=== PATIENT | female | born 1940 | race Caucasian/White ===

== ENCOUNTER 2018-09-06 15:24 | Emergency (ER) | payer MEDICARE, OTHER ==
[~2018-09-06] VITALS: Ht 152.4 cm; Wt 78.9 kg
[2018-09-06 15:30] VITALS: BP 173/56
--- NOTE | 2018-09-06 15:30 | NUR ---
ED Nurse Note: pt arrives from [facility] with c/o a few days of a painful cough. pt is vietnamese speaking, complaining of 2/10 pain on the chest. pt not in acute distress. 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 seen by theresa. pt able to give urine and sent to lab.
--- NOTE | 2018-09-06 15:32 | Emergency Room Report ---
History of Present Illness General Chief Complaint: Upper Respiratory Illness Source: Patient, EMS Present Illness HPI The patient is brought by EMS. They were called to a clinic where the patient was experiencing chest pain. They claim that she's had a productive cough. Seems more pleuritic according to their assessment. An EKG was done in the field which revealed normal sinus rhythm with no injury. The clinic gave her aspirin. The patient's been having exertional dyspnea and weakness has progressing over the last few months. She also complains about chest pressure during those times. The patient reports having catheterization and stenting 13 or 14 years ago. She was last evaluated by a commercial loan specialist and 11 and 5 months ago but had no studies done at that time. 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 Past Medical History: see triage record Social History: Denies: smoking, alcohol use, drug use Social History Narrative from [place] Last Menstrual Period: na Reviewed Nursing Documentation: PMH: Agreed; PSxH: Agreed Nursing Documentation-PMH Past Medical History: No History, Except For Hx Cardiac Problems: Yes - stent 2001, high cholesterol, chf Hx Hypertension: Yes Hx Diabetes: Yes Review of Systems All Other Systems: negative except mentioned in HPI Physical Exam Vital Signs Date Time Temp Pulse Resp B/P (MAP) Pulse Ox O2 Delivery O2 Flow Rate FiO2 09/06/18 15:18 97.5 71 20 99 Room Air Sp02 EP Interpretation: reviewed, normal General Appearance: well appearing, no apparent distress, GCS 15 Head: normocephalic Eyes: bilateral eye normal inspection, bilateral eye PERRL, bilateral eye EOMI ENT: moist mucus membranes Neck: supple Respiratory: lungs clear, normal breath sounds Cardiovascular #1: regular rate, rhythm Cardiovascular #2: 2+ radial (R) Gastrointestinal: normal inspection, normal bowel sounds, non tender, no mass, non-distended, overweight Musculoskeletal: back normal, gait/station normal, normal range of motion, no calf tenderness Neurologic: alert, oriented x3, grossly normal Psychiatric: anxious Skin: normal inspection, warm/dry Medical Decision Making Diagnostic Impression: Primary Impression: ACS (acute coronary syndrome) Additional Impression: Upper respiratory infection Qualified Codes: J06.9 - Acute upper respiratory infection, unspecified ER Course Patient presents with chest pain. Differential includes acute myocardial infarction cardial infarction, acute coronary syndrome, pneumonia, chest wall strain, costochondritis, pleurisy, pulmonary embolus amongst others. Based on vital signs pulmonary embolus is less likely. The patient will be evaluated with EKG, chest x-ray and labs. History of increasing dyspnea and weakness with exertion over the past 2 months is disconcerting. She has several risk factors for cardiac cause of chest pain. EKG without injury. Chest x-ray without infiltrate slight cardiomegaly. Labs with negative troponin. Patient is pain free after nitroglycerin paste. Due to high risk factors and symptoms of possibly stable angina, observation is indicated. Patient was discussed with Dr. Granger who accepts the patient for observation at [facility] [place]. Multiple discussions with patient regarding the need to be transferred. She refused to sign transfer papers until daughter was contacted and supported her further evaluation. Laboratory Tests Test 09/06/18 15:45 09/06/18 16:30 Urine Color Pale yellow Urine Appearance Clear Urine pH 5 (4.5-8.0) Urine Specific [place] 1.010 (1.005-1.035) Urine Protein Negative (NEGATIVE) Urine Glucose (UA) Negative (NEGATIVE) Urine Ketones Negative (NEGATIVE) Urine Blood 1+ (NEGATIVE) H Urine Nitrite Negative (NEGATIVE) Urine Bilirubin Negative (NEGATIVE) Urine Urobilinogen Normal MG/DL (0.0-1.0) Urine Leukocyte Esterase Negative (NEGATIVE) Urine RBC 0-2 /HPF (0 - 2) Urine WBC 0 /HPF (0 - 2) Urine Squamous Epithelial Cells Occasional /LPF Urine Bacteria Occasional /HPF (NONE) White Blood Count 6.5 K/UL (4.8-10.8) Red Blood Count 3.95 M/UL (4.20-5.40) L Hemoglobin 12.5 G/DL (12.0-16.0) Hematocrit 36.8 % (37.0-47.0) L Mean Corpuscular Volume 93 FL (80-99) Mean Corpuscular Hemoglobin 31.6 PG (27.0-31.0) H Mean Corpuscular Hemoglobin Concent 33.9 G/DL (32.0-36.0) Red Cell Distribution Width 12.7 % (11.6-14.8) Platelet Count 220 K/UL (150-450) Mean Platelet Volume 8.0 FL (6.5-10.1) Neutrophils (%) (Auto) 43.4 % (45.0-75.0) L Lymphocytes (%) (Auto) 47.1 % (20.0-45.0) H Monocytes (%) (Auto) 5.8 % (1.0-10.0) Eosinophils (%) (Auto) 2.5 % (0.0-3.0) Basophils (%) (Auto) 1.2 % (0.0-2.0) Prothrombin Time 10.4 SEC (9.30-11.50) Prothrombin Time INR 1.0 (0.9-1.1) PTT 28 SEC (23-33) Sodium Level 140 MMOL/L (136-145) Potassium Level 4.2 MMOL/L (3.5-5.1) Chloride Level 103 MMOL/L (98-107) Carbon Dioxide Level 28 MMOL/L (21-32) Anion Gap 9 mmol/L (5-15) Blood Urea Nitrogen 22 mg/dL (7-18) H Creatinine 0.7 MG/DL (0.55-1.30) Estimate Glomerular Filtration Rate mL/min (>60) Glucose Level 97 MG/DL (74-106) Calcium Level 9.9 MG/DL (8.5-10.1) Total Bilirubin 0.5 MG/DL (0.2-1.0) Aspartate Amino Transferase (AST) 16 U/L (15-37) Alanine Aminotransferase (ALT) 21 U/L (12-78) Alkaline Phosphatase 62 U/L (46-116) Total Creatine Kinase 86 U/L (26-308) Troponin I 0.000 ng/mL (0.000-0.056) Pro-B-Type Natriuretic Peptide 99 pg/mL (0-125) Total Protein 8.3 G/DL (6.4-8.2) H Albumin 4.2 G/DL (3.4-5.0) Globulin 4.1 g/dL Albumin/Globulin Ratio 1.0 (1.0-2.7) EKG Diagnostic Results Rate: normal Rhythm: NSR ST Segments: no acute changes Rhythm Strip Diag. Results EP Interpretation: yes Rhythm: NSR, no PVC's, no ectopy Chest X-Ray Diagnostic Results Chest X-Ray Diagnostic Results : Chest X-Ray Ordered: Yes # of Views/Limited/Complete: 1 View Indication: Chest Pain EP Interpretation: Yes Interpretation: no consolidation, no effusion, no pneumothorax Impression: Other Electronically Signed by: Electronically signed by Leighton Yuan MD Last Vital Signs Date Time Temp Pulse Resp B/P (MAP) Pulse Ox O2 Delivery O2 Flow Rate FiO2 09/06/18 22:35 98.0 63 12 135/49 100 Room Air Status: improved Disposition: XFER [facility] Condition: Serious Leighton Yuan MD September 06, 2018 15:32
--- NOTE | 2018-09-06 16:09 | Diagnostic Imaging Report ---
Indication: Chest pain Technique: XRAY Chest 1v Comparison: None Findings: Heart appears mildly enlarged. Mediastinal contours are sharp. There are atherosclerotic vascular calcifications. There is slight haziness of point vascularity. No definite focal airspace consolidation identified. No pleural effusion. No pneumothorax. No acute osseous normality. Impression: Apparent cardiomegaly with slight haziness of the pulmonary vascularity suggesting mild congestive changes/early interstitial edema. Correlate clinically.
[2018-09-06 16:10] LABS: APPEARANCE,URINE CLEAR; BILIRUBIN, URINE NEGATIVE (NEGATIVE); COLOR,URINE PALE YELLOW; GLUCOSE, URINE (UA) NEGATIVE (NEGATIVE); KETONES,URINE NEGATIVE (NEGATIVE); LEUKOCYTE ESTERASE ,URINE NEGATIVE (NEGATIVE); NITRITE,URINE NEGATIVE (NEGATIVE); PH,URINE 5 (4.5-8.0); PROTEIN,URINE NEGATIVE (NEGATIVE); UROBILINOGEN,URINE NORMAL MG/DL (0.0-1.0)
[2018-09-06] MEDS ORDERED: Nitroglycerin 2% oint pkt TOPIC ONE (16:15)
[2018-09-06 16:57] LABS: BASOPHILS % (AUTO) 1.2 % (0.0-2.0); EOSINOPHILS % (AUTO) 2.5 % (0.0-3.0); HEMATOCRIT 36.8 % (37.0-47.0); HEMOGLOBIN 12.5 G/DL (12.0-16.0); LYMPHOCYTES % (AUTO) 47.1 % (20.0-45.0); MEAN CORPUSCULAR VOLUME 93 FL (80-99); MONOCYTES % (AUTO) 5.8 % (1.0-10.0); NEUTROPHILS % (AUTO) 43.4 % (45.0-75.0); PLATELET COUNT 220 K/UL (150-450); RED BLOOD COUNT 3.95 M/UL (4.20-5.40); RED CELL DISTRIBUTION WIDTH 12.7 % (11.6-14.8); WHITE BLOOD COUNT 6.5 K/UL (4.8-10.8)
[2018-09-06 17:11] LABS: ANION GAP 9 mmol/L (5-15); BLOOD UREA NITROGEN 22 mg/dL (7-18); CALCIUM 9.9 MG/DL (8.5-10.1); CARBON DIOXIDE 28 MMOL/L (21-32); CHLORIDE 103 MMOL/L (98-107); CREATININE 0.7 MG/DL (0.55-1.30); POTASSIUM 4.2 MMOL/L (3.5-5.1); SODIUM 140 MMOL/L (136-145)
[2018-09-06 17:23] LABS: ALANINE AMINOTRANSFERASE 21 U/L (12-78); ALBUMIN 4.2 G/DL (3.4-5.0); ALKALINE PHOSPHATASE 62 U/L (46-116); ASPARTATE AMINO TRANSFERASE 16 U/L (15-37); BILIRUBIN,TOTAL 0.5 MG/DL (0.2-1.0); CREATINE KINASE 86 U/L (26-308)
[2018-09-06 17:44] VITALS: BP 139/61
--- NOTE | 2018-09-06 18:00 | NUR ---
ED Nurse Note: pt asked for something to eat, sandwich provided and pt able to tolerate well. pt not in acute distress. denies any pain. vs within normal limit will continue to monitor.
--- NOTE | 2018-09-06 19:20 | NUR ---
HAND-OFF: Report given to Kimmie STONE. medinad on bedside talking with pt regarding the need for hospital transfer. medinad using book sorter via phone.
--- NOTE | 2018-09-06 19:35 | NUR ---
ED Nurse Note: Patient is currently consulting with ermd regarding plan of care.
--- NOTE | 2018-09-06 20:01 | NUR ---
ED Nurse Note: Patient currently at bedside with charge RNon the phone with daughter.
[2018-09-06 20:49] VITALS: BP 135/49
--- NOTE | 2018-09-06 22:14 | NUR ---
ED Nurse Note: TRANSPORT IS HERE TO [facility] PATIENT. ATTEMPTED TO CALL TO GIVE REPORT TO OB WHO WAS UNABLE TO RECEIVE REPORT AT THIS TIME AND ASKED IF I COULD CALL HIM BACK IN 30 MINUTES.
--- NOTE | 2018-09-06 22:27 | NUR ---
ED Nurse Note: CALLED TO GIVE REPORT FOR PATIENT TO OB. PATIENT IS ALERT AND ORIENTED NO SKIN ISSUES, 22G AT RIGHT AC. VITAL SIGNS STABLE.
[2018-09-06 22:35] VITALS: BP 135/49
== END 2018-09-06 22:39 | disposition short-term general hospital (02) ==
LOC: EDBD 15:24 → EMR 16:00
DX: I24.9 Acute ischemic heart disease, unspecified (principal); J06.9 Acute upper respiratory infection, unspecified; Z95.0 Presence of cardiac pacemaker; E11.9 Type 2 diabetes mellitus without complications; I10 Essential (primary) hypertension; E78.00 Pure hypercholesterolemia, unspecified; I11.0 Hypertensive heart disease with heart failure; I50.9 Heart failure, unspecified
CPT/HCPCS: 36415; 71045; 80053; 81003; 82550; 83880; 84484; 85025; 85610; 85730; 93005; 96374; 99284; S0028